=== PATIENT | female | born 1960 | race Caucasian/White ===

== ENCOUNTER 2016-09-20 22:10 | Inpatient (IN) | payer MEDICARE ==
[2016-09-20] MEDS ORDERED: TYLENOL WITH C1 EACH PO (23:49)
[2016-09-20] MEDS ORDERED: PROVENTIL HFA 61 INH INH (23:51)
[2016-09-20] MEDS ORDERED: ASPIRIN EC325 MG PO (23:52)
[2016-09-20] MEDS ORDERED: LIPITOR TAB 2020 MG PO (23:53)
[2016-09-20] MEDS ORDERED: SYMBICORT 160-1 INHA INH (23:54)
[2016-09-20] MEDS ORDERED: ALLERGY RELIEF10 MG PO (23:55)
[2016-09-20] MEDS ORDERED: PLAVIX 75 MG TA75 MG PO (23:56)
[2016-09-20] MEDS ORDERED: KLONOPIN TAB 00.5 MG PO (23:56)
[2016-09-20] MEDS ORDERED: FERROUS SULFAT325 M2 PO (23:57)
[2016-09-20] MEDS ORDERED: IMDUR ER TAB 6060 MG PO (23:58)
[2016-09-20] MEDS ORDERED: ACIDOPHILUS LA1 EACH PO (23:59)
[2016-09-21] MEDS ORDERED: COZAAR50 MG PO
[2016-09-21] MEDS ORDERED: PRILOSEC OTC20 MG PO (00:01)
[2016-09-21] MEDS ORDERED: LOPRESSOR 50 MG50 MG PO (00:01)
[2016-09-21] MEDS ORDERED: PROTONIX40 MG PO (00:02)
[2016-09-21] MEDS ORDERED: MIRALAX PACK 171 PKT PO (00:02)
[2016-09-21] MEDS ORDERED: THEOPHYLLINE600 MG PO (00:03)
[2016-09-21] MEDS ORDERED: SPIRIVA18 MCG INH (00:04)
[2016-09-21] MEDS ORDERED: IPRAT-ALBUT 0.5-3 ML INH (00:05)
[2016-09-21] MEDS ORDERED: CORTISPORIN OTI10 M1 OT (00:07)
[2016-09-21 08:37] LABS: HEMOGLOBIN 10.1 gm/dl (12.3-15.3); RED BLOOD COUNT 3.7 M/UL (4.00-5.10); WHITE BLOOD COUNT 19.6 K/UL (4.5-11.0)
[2016-09-21 09:00] LABS: BUN/CREATININE RATIO 24 (0-10)
[2016-09-22 04:01] LABS: HEMOGLOBIN 10.6 gm/dl (12.3-15.3); RED BLOOD COUNT 3.88 M/UL (4.00-5.10)
[2016-09-22 04:02] LABS: WHITE BLOOD COUNT 13.8 K/UL (4.5-11.0)
[2016-09-22 04:14] LABS: BUN/CREATININE RATIO 20 (0-10)
[2016-09-23 05:06] LABS: HEMOGLOBIN 10.9 gm/dl (12.3-15.3); RED BLOOD COUNT 4.03 M/UL (4.00-5.10)
[2016-09-23 05:08] LABS: WHITE BLOOD COUNT 9.4 K/UL (4.5-11.0)
[2016-09-23 05:28] LABS: BUN/CREATININE RATIO 42 (0-10)
[2016-09-24 04:10] LABS: HEMOGLOBIN 10.5 gm/dl (12.3-15.3); RED BLOOD COUNT 3.84 M/UL (4.00-5.10); WHITE BLOOD COUNT 12.8 K/UL (4.5-11.0)
[2016-09-24 04:35] LABS: BUN/CREATININE RATIO 40 (0-10)
[2016-09-25 05:24] LABS: BUN/CREATININE RATIO 40 (0-10)
[2016-09-26 06:09] LABS: BUN/CREATININE RATIO 43 (0-10)
[2016-09-27 05:55] LABS: HEMOGLOBIN 11.1 gm/dl (12.3-15.3); RED BLOOD COUNT 4.05 M/UL (4.00-5.10); WHITE BLOOD COUNT 10.2 K/UL (4.5-11.0)
[2016-09-27 06:13] LABS: BUN/CREATININE RATIO 36 (0-10)
[2016-09-28 06:21] LABS: HEMOGLOBIN 11.1 gm/dl (12.3-15.3); RED BLOOD COUNT 4.1 M/UL (4.00-5.10); WHITE BLOOD COUNT 12.2 K/UL (4.5-11.0)
[2016-09-28 06:54] LABS: BUN/CREATININE RATIO 36 (0-10)
[2016-09-29] MEDS ORDERED: DIAMOX 250 MG250 MG PO (12:59)
[2016-09-29] MEDS ORDERED: ECOTRIN81 MG PO (13:02)
[2016-09-29] MEDS ORDERED: OSCAL 500 + D TA1 EA PO ×2 (13:03→14:12)
[2016-09-29] MEDS ORDERED: SALINE NASAL SP88 ML (13:10)
[2016-09-29] MEDS ORDERED: AUGMENTIN 875-1 EACH PO (13:35)
[2016-09-29] MEDS ORDERED: SENOKOT-S TABL1 EACH PO (13:36)
[2016-09-29] MEDS ORDERED: MEDROL DOSEPAK 24 MG PO (13:41)
[2016-09-29] MEDS ORDERED: IPRAT-ALBUT 0.5-3 ML INH (14:42)
== END 2016-09-29 15:36 | disposition home or self-care (01) | DRG 190 ==
LOC: PROG CARE 23:30 → M/S 09-25 17:28
PROVIDERS: Family Medicine; Internal Medicine Infectious Disease; ADMIT Internal Medicine
DX: J44.1 Chronic obstructive pulmonary disease with (acute) exacerbation (principal); J96.22 Acute and chronic respiratory failure with hypercapnia; J96.21 Acute and chronic respiratory failure with hypoxia; I50.22 Chronic systolic (congestive) heart failure; K92.1 Melena; M80.88XA Other osteoporosis with current pathological fracture, vertebra(e), initial encounter for fracture; I25.2 Old myocardial infarction; K21.9 Gastro-esophageal reflux disease without esophagitis; I10 Essential (primary) hypertension; F41.9 Anxiety disorder, unspecified; E78.5 Hyperlipidemia, unspecified; R00.0 Tachycardia, unspecified; I25.119 Atherosclerotic heart disease of native coronary artery with unspecified angina pectoris; J20.9 Acute bronchitis, unspecified; D50.9 Iron deficiency anemia, unspecified; R53.81 Other malaise; Z99.81 Dependence on supplemental oxygen; Z86.73 Personal history of transient ischemic attack (TIA), and cerebral infarction without residual deficits; Z98.61 Coronary angioplasty status; Z83.6 Family history of other diseases of the respiratory system; Z82.49 Family history of ischemic heart disease and other diseases of the circulatory system; Z87.891 Personal history of nicotine dependence; Z79.82 Long term (current) use of aspirin; Z79.899 Other long term (current) drug therapy
CPT/HCPCS: ECHO; 36415; 36600; 71020; 78452; 80048; 80053; 80061; 80198; 82550; 82553; 82728; 82746; 82803; 83036; 83540; 83550; 83880; 84439; 84443; 84484; 85025; 85027; 87070; 87205; 93005; 93017; 93306; 94640; 94664; 97110; 97116; 97530; A9502; G0378; G0379; J1756; J1956; J2785; J2920; J7040; J7050; J7509